=== PATIENT | female | born 1950 | race Caucasian/White ===

== ENCOUNTER 2020-05-08 07:07 | Day surgery (SDC) | payer MEDICARE, MEDICAID ==
[2020-05-05 12:24] LABS: COVID AG,FIA SOURCE NASOPHARYNGEAL
[~2020-05-08] VITALS: Ht 162.6 cm; Wt 63.6 kg
[~2020-05-08 07:07] MED LIST: CINA90TA PO; CLOP75TA60 PO; HYDR-1475 PO; INSLAN SQ; INSU100C3 SQ; LEVO25TA9 PO; LORA10TA7 PO; LOSA25TA44 PO; SIMV-43 PO; SITA100 PO; SODIUM CHLORIDE 0.9% 1,000 ML IV ONE
[2020-05-08] MEDS ORDERED: SODIUM CHLORIDE 0.9% 1,000 ML ONE (07:19)
[2020-05-08 07:47] LABS: GLUCOMETER DEV NAME(LOC) SDS.; GLUCOSE,POINT OF CARE 258 MG/DL (70-110)
[2020-05-08] MEDS ORDERED: FentaNYL CITRATE PF 100 MCG/2 ML VIAL ONE (08:01)
[2020-05-08] MEDS ORDERED: MIDAZOLAM HCL 2 MG/2 ML VIAL ONE (08:01)
[2020-05-08] MEDS ORDERED: INSU500V SQ (08:11)
[2020-05-08] MEDS ORDERED: FENO160T41 PO (08:11)
[2020-05-08] MEDS ORDERED: AMLO-257 PO (08:11)
[2020-05-08] MEDS ORDERED: ATOR20TA86 PO (08:11)
[2020-05-08] MEDS ORDERED: METO25 PO (08:11)
[2020-05-08] MEDS ORDERED: SITA1TBM4 PO (08:11)
[2020-05-08] MEDS ORDERED: FAMO20 PO (08:11)
[2020-05-08] MEDS ORDERED: MethylPREDNISolone SOD SUCC 125 MG/2 ML VIAL IVP ONE (09:30)
[2020-05-08] MEDS ORDERED: MethylPREDNISolone SOD SUCC 125 MG/2 ML VIAL ONE ×2 (09:58→10:09)
[2020-05-08] MEDS ORDERED: OXYGEN THERAPY IH SCH (20:00)
== END 2020-05-08 11:20 | disposition home or self-care (01) ==
LOC: SURGERY 07:07
PROVIDERS: ATTEND Internal Medicine Critical Care Medicine
DX: J38.4 Edema of larynx (principal); B37.0 Candidal stomatitis
CPT/HCPCS: 31623; 31624; 71045; 82962; 87015; 87070; 87101; 87206; 87220; 87426; 88184; 88185; C9803; J2250; J2930; J3010; J7030; 88108; 88312

== ENCOUNTER 2021-07-21 06:36 | Day surgery (SDC) | payer OTHER ==
[~2021-07-21] VITALS: Ht 162.6 cm; Wt 63.6 kg
[~2021-07-21 06:36] MED LIST changes: +AMLO-257 PO; +ATOR20TA86 PO; -CINA90TA PO; +FAMO20 PO; +FENO160T14 PO; -HYDR-1475 PO; -INSLAN SQ; -INSU100C3 SQ; +INSU500V SQ; -LORA10TA7 PO; +LOSA25TA41 PO; -LOSA25TA44 PO; +METO25 PO; -SIMV-43 PO; -SITA100 PO; +SITA1TBM4 PO
[2021-07-21] MEDS ORDERED: BENZOCAINE 20% 50 MCG/SPRAY 57 GM TP ONE (06:37)
[2021-07-21] MEDS ORDERED: LIDOCAINE 4% 50 ML SOLUTION TP ONE (06:37)
[2021-07-21] MEDS ORDERED: LIDOCAINE 2% 5 ML JELLY TP ONE (06:37)
[2021-07-21 06:55] LABS: COVID AG,FIA SOURCE NASOPHARYNGEAL
[2021-07-21] MEDS ORDERED: MIDAZOLAM HCL 5 MG/ML VIAL ONE (08:04)
[2021-07-21] MEDS ORDERED: FentaNYL CITRATE PF 100 MCG/2 ML VIAL ONE (08:04)
[2021-07-21 08:16] LABS: GLUCOMETER DEV NAME(LOC) SDS.; GLUCOSE,POINT OF CARE 127 MG/DL (70-110)
[2021-07-21] MEDS ORDERED: BIFI4CAP PO (08:38)
[2021-07-21] MEDS ORDERED: DOCU240C26 PO (08:42)
[2021-07-21] MEDS ORDERED: GABA-1181 PO (08:44)
[2021-07-21] MEDS ORDERED: SITA100 PO (08:45)
[2021-07-21] MEDS ORDERED: LOSA-382 PO (08:49)
[2021-07-21] MEDS ORDERED: METF-1211 PO (08:49)
[2021-07-21] MEDS ORDERED: LORA10TA7 PO (08:49)
[2021-07-21] MEDS ORDERED: OMEP20 PO (08:58)
[2021-07-21] MEDS ORDERED: MethylPREDNISolone SOD SUCC 125 MG/2 ML VIAL IVP ONE (09:15)
[2021-07-21] MEDS ORDERED: MethylPREDNISolone SOD SUCC 125 MG/2 ML VIAL ONE (10:13)
[2021-07-21] MEDS ORDERED: OXYGEN THERAPY IH SCH (20:00)
== END 2021-07-21 12:45 | disposition home or self-care (01) ==
LOC: SURGERY 06:36
PROVIDERS: ATTEND Internal Medicine Critical Care Medicine
DX: J38.4 Edema of larynx (principal); B37.0 Candidal stomatitis; Z98.890 Other specified postprocedural states; Z79.899 Other long term (current) drug therapy; Z88.6 Allergy status to analgesic agent; I10 Essential (primary) hypertension; Z82.3 Family history of stroke; Z79.4 Long term (current) use of insulin; E11.9 Type 2 diabetes mellitus without complications; Z79.01 Long term (current) use of anticoagulants
CPT/HCPCS: 31623; 31624; 71045; 71250; 82962; 87015; 87070; 87101; 87206; 87220; 87426; 88112; 88184; 88185; 88312; C9803; J2250; J2930; J3010; Z7610

== ENCOUNTER 2023-12-29 07:54 | Day surgery (SDC) | payer OTHER ==
[~2023-12-29] VITALS: Ht 162.6 cm; Wt 63.6 kg
[~2023-12-29 07:54] MED LIST changes: +ATOR20TA PO; -ATOR20TA86 PO; +BIFI4CAP PO; -FENO160T14 PO; +FENO160T75 PO; +GABA-1181 PO; +LORA10TA7 PO; +LOSA-382 PO; +METF-1211 PO; +OMEP20 PO; +SITA100 PO; -SODIUM CHLORIDE 0.9% 1,000 ML IV ONE; +SODIUM CHLORIDE 0.9% 1,000 ML ONE; +[UNRECOGNIZED DRUG - CODE] PO
[2023-12-29] MEDS ORDERED: FentaNYL CITRATE PF 100 MCG/2 ML VIAL ONE (08:08)
[2023-12-29] MEDS ORDERED: MIDAZOLAM HCL 2 MG/2 ML VIAL ONE (08:10)
[2023-12-29] MEDS ORDERED: INSU100I3 SQ (09:09)
[2023-12-29 09:11] LABS: GLUCOMETER DEV NAME(LOC) SDS.; GLUCOSE,POINT OF CARE 240 MG/DL (70-110)
[2023-12-29] MEDS: SODIUM CHLORIDE 0.9% 1,000 ML IV ONE (09:21)
[2023-12-29] MEDS ORDERED: ESOM20CA31 PO (09:22)
[2023-12-29] MEDS ORDERED: INSU100V50 SQ (09:22)
[2023-12-29] MEDS ORDERED: FLUT16SP NASAL (09:22)
[2023-12-29] MEDS ORDERED: DAPA5TAB PO (09:22)
[2023-12-29] MEDS ORDERED: OMEG100014 PO (09:22)
[2023-12-29] MEDS ORDERED: SEMA1PEN3 SQ (09:22)
[2023-12-29] MEDS ORDERED: ALBU18HF12 IH (09:22)
[2023-12-29] MEDS ORDERED: FERR325T27 PO (09:22)
[2023-12-29 09:50] VITALS: PULSE 68; RESP 13; O2SAT 96
[2023-12-29] MEDS: MethylPREDNISolone SOD SUCC 125 MG/2 ML VIAL IVP ONE (11:06)
[2023-12-29] MEDS ORDERED: BENZOCAINE 20% 50 MCG/SPRAY 57 GM TP ONE (12:00)
[2023-12-29] MEDS ORDERED: LIDOCAINE 4% 50 ML SOLUTION TP ONE (12:00)
[2023-12-29] MEDS ORDERED: LIDOCAINE 2% 11 ML JELLY TP ONE (12:00)
== END 2023-12-29 12:40 | disposition home or self-care (01) ==
LOC: SURGERY 07:54
PROVIDERS: ATTEND Internal Medicine Critical Care Medicine
DX: R05.3 Chronic cough (principal); J38.4 Edema of larynx; B37.0 Candidal stomatitis; R04.2 Hemoptysis; J84.10 Pulmonary fibrosis, unspecified; J98.8 Other specified respiratory disorders; J98.09 Other diseases of bronchus, not elsewhere classified; I10 Essential (primary) hypertension; E11.9 Type 2 diabetes mellitus without complications; M19.90 Unspecified osteoarthritis, unspecified site; Z85.21 Personal history of malignant neoplasm of larynx; Z79.4 Long term (current) use of insulin; Z79.899 Other long term (current) drug therapy; Z90.710 Acquired absence of both cervix and uterus; Z90.89 Acquired absence of other organs; Z98.890 Other specified postprocedural states; Z88.5 Allergy status to narcotic agent
CPT/HCPCS: 31623; 82962; 87206; 87101; 87220; 87070; 88108; 31624; 71045; 87015; J3010; J2250; J7030; Z7610